=== PATIENT | female | born 1970 | race Caucasian/White ===

== ENCOUNTER → 2022-12-30 | Outpatient (CLI) | payer OTHER, SELFPAY ==
[2022-12-30 11:29] LABS: Erythrocyte Sedimentation Rate 2 mm/hr (0-30)
[2022-12-30 11:31] LABS: Absolute Lymphocyte Count 1.87 X10^3/uL (0.83-4.51); Absolute Neutrophil Count 5.2 X10^3/uL (2.0-7.7); Basophil# 0.02 X10^3/uL; Basophil% 0.3 % (0-1); Eosinophil# 0.02 X10^3/uL; Eosinophils% 0.3 % (0-5); Hematocrit 42.4 % (37-47); Hemoglobin 14.1 g/dL (12.0-15.0); Lymphocyte # 1.87 X10^3/ul (0.83-4.51); Lymphocyte % 24.7 % (19-41); Mean Corp Hgb Conc 33.3 g/dL (32-36); Mean Corpuscular Hgb 31.6 pg (27.0-32.0); Mean Corpuscular Volume 95.1 fL (81-99); Mean Platelet Vol. 10.3 fl (6.2-12.0); Monocyte# 0.49 X10^3/uL; Monocyte% 6.5 % (0-10); NRBC Flagged by Analyzer 0 % (0-5); Neutrophil # 5.15 X10^3/uL (2.7-7.7); Neutrophil % 68.1 % (47-70); Platelet Count 239 K/mm3 (150-450); RBC Distribution Width CV 12.2 % (11.6-14.6); RBC Distribution Width SD 42.7 fl (35.1-43.9); Red Blood Count 4.46 M/mm3 (4.2-5.4); White Blood Count 7.6 K/mm3 (4.4-11.0)
[2022-12-30 11:58] LABS: AST(SGOT) 15 U/L (15-37); Alanine Aminotransfer ALT/SGPT 17 U/L (13-56); Albumin, Serum 3.8 g/dL (3.2-5.0); Alkaline Phosphatase 80 U/L (45-117); Anion Gap 5 (5-15); BUN 16 mg/dL (7-18); CRP < 2.90 mg/L (0.0-3.0); Calcium,Total 8.5 mg/dL (8.5-10.1); Chloride 106 mmol/L (98-107); Creatinine, Serum 0.64 mg/dL (0.55-1.02); EST Glomerular Filtration Rate 103 mL/min (>60); Est Glom Filt Rate - Afr Amer 124 mL/min (>60); Globulin 3.7 g/dL (2.2-4.2); Glucose 91 mg/dL (74-106); Potassium 3.6 mmol/L (3.5-5.1); Protein, Total 7.5 g/dL (6.4-8.2); Sodium Level 141 mmol/L (136-145); Thyroid Stim Hormone (TSH) 1.11 uIU/mL (0.358-3.74)
[2022-12-31 13:07] LABS: Anti-Centromere B Ab <0.2 AI (0.0-0.9); Anti-Chromatin <0.2 AI (0.0-0.9); Anti-Jo <0.2 AI (0.0-0.9); Anti-Scleroderma-70 AB <0.2 AI (0.0-0.9); RNP Ab 0.3 AI (0.0-0.9); SJOGREN'S Anti-SS-A test < 0.2 AI (0.0-0.9); SJOGREN'S Anti-SS-B test < 0.2 AI (0.0-0.9); Smith Ab <0.2 AI (0.0-0.9)
[2022-12-31 18:07] LABS: Cytoplasmic Ab (C-ANCA) <1:20 titer (Neg:<1:20); Endomysial Antibody IgA Negative (Negative); Immunoglobulin A 201 mg/dL (87-352)
[2022-12-31 18:24] LABS: Perinuclear Ab (P-ANCA) <1:20 titer (Neg:<1:20); t-Transglutaminase IgA <2 U/mL (0-3)
[2023-01-01 19:59] LABS: Anti-dsDNA Ab 4 IU/mL (0-9)
== END | disposition home or self-care (01) ==
PROVIDERS: PCP Family Medicine; Referring Provider Nurse Practitioner Adult Health; Visit Provider Nurse Practitioner Adult Health
DX: R10.9 Unspecified abdominal pain (principal); K59.00 Constipation, unspecified
CPT/HCPCS: 36415; 80053; 82784; 83516; 84443; 85025; 85652; 86140; 86225; 86235; 86255; 86256

== ENCOUNTER 2023-01-08 09:30 | Day surgery (SDC) | payer OTHER, SELFPAY ==
[2023-01-08] VITALS (7 sets, daily range): BP systolic 98–114; BP diastolic 54–72; PULSE 68–82; RESP 18; TEMP 36.6–37.2; O2SAT 99–100; BMI 20.8
--- NOTE | 2023-01-08 09:36 | HP.PCM_ITS ---
History and Physical Date of Admission: 01/08/23 MARZENA TRUJILLO, is a 52 F who presents to the office today to establish with GI for abdominal pain, bloating. Symptoms began approx 5 months ago. She had constipation with small hard pebble stool, progressed to the point of impaction in August 2022. Treated with juices, stool softener but very uncomfortable for about 5 days. Bloating is most bothersome symptom at this time. Can only eat one meal a day, has early satiety since 08/2022, gets bloated and uncomfortable and nausea but no vomiting, no abd pain related to eating. Decreased appetite. Has lost about 5 lbs. Gets intermittent pain LUQ that wraps around to back. No heartburn or acid reflux, no dysphagia. Now stool is soft since having diarrhea last week. She has had diarrhea 3 times since August 2022, got bloating and cramping after eating, then diarrhea, urgent, had accident. Doesn't feel like bowels are completely emptying. No melena or hematochezia. She hates exercising but will make herself if necessary to treat her symptoms. 09/09/2022 KUB: negative 09/13/2022 CT abd pel w/ IV and oral contrast: moderate stool retention, possible uterine fibroid, right adnexal cyst No prior EGD or colonoscopyo 2018 negative Cologuard She doesn't take any OTC or Rx meds, prefers to avoid meds whenever possible PSH uterine ablation PMH depression, menstrual migraines ROS Const Constitutional: No fatigue ENT ENT: Positive for difficulty swallowing Gastro GI: Positive for abdominal pain, bloating, diarrhea, difficulty swallowing, excessive flatus and nausea/dyspepsia; No belching, change in bowel habits, change in stool character, coffee ground emesis, constipation, cramping, heartburn, feeling full early, incontinent of stools, Vomiting blood/hematemesis, Blood in stool, loose stools, Black,tarry stools, pain with swallowing, vomiting or other Musc Musculoskeletal: Positive for back pain and Arthritis; No joint pain Skin Skin: No yellowing of the eye or itchy eyes Psych Psychiatric: No anxiety and No depression Endo Endocrine: No fatigue Aller/Imm Allergy/Immunologic: No itchy eyes Vernon/Lymp Hematologic/Lymphatic: No easy bleeding or easy bruising Exam Const General: cooperative and healthy appearing Nutritional Appearance: average body habitus Orientation: alert, awake and oriented x3 HENMT Head: normal to inspection Eyes Sclera: sclerae normal Chest Chest palpation & inspection: normal inspection of the chest Resp Effort & Inspection: normal respiratory effort GI Inspection: normal to inspection Auscultation: normal bowel sounds Palpation: soft, no hepatosplenomegaly, no masses and tender in the epigastrum and in the LLQ General: bladder normal to palpation Bimanual Exam- Vagina & Uterus: bladder normal to palpation Skin General: no rashes or lesions noted Neuro Gait: normal gait Psych Mood: congruent mood Quality Reporting Tobacco Screening ([facility]) Smoking Status: Never smoker Assessment and Plan Assessment and Plan (1) Abdominal pain: ?Status:?Acute ?Plan: 52 yr old female with intermittent epigastric/LUQ pain, early satiety, bloating, constipation with intermittent diarrhea DDx includes gastroparesis, constipation with overflow diarrhea, SIBO EGD and colonoscopy w/ office f/u 2 wks later Labs today, will call her with results, then will recommend treatment to try to help with symptoms prior to endoscopies Consider gastric emptying study (2) Constipation: ?Status:?Chronic ?Plan: as above ? ? ? Orders: Orders Comprehensive Metabolic Profil Today K59.00 - Constipation, unspecified, R10.9 - Unspecified abdominal pain ? E CRP Today K59.00 - Constipation, unspecified, R10.9 - Unspecified abdominal pain ? Thyroid Stim Hormone (TSH) Today K59.00 - Constipation, unspecified, R10.9 - Unspecified abdominal pain ? CBC W/Diff, Automated Today K59.00 - Constipation, unspecified, R10.9 - Unspecified abdominal pain ? Erythrocyte Sed Rate Today K59.00 - Constipation, unspecified, R10.9 - Unspecified abdominal pain ? RUDOLPH Comprehensive Panel Today K59.00 - Constipation, unspecified, R10.9 - Unspecified abdominal pain ? ANCA Today K59.00 - Constipation, unspecified, R10.9 - Unspecified abdominal pain ? Celiac Disease Profile TodayI K59.00 - Constipation, unspecified, R10.9 - Unspecified abdominal pain ? I have examined the patient and the H&P has been reviewed. There are no clinical changes since date of exam.
[2023-01-08] MEDS: Lactated Ringers 1,000 ML 15 ML IV (10:04)
--- NOTE | 2023-01-08 10:09 | SUR.PREOP ---
patient unable to urinate at time of check-in. states that she is not and doesn't need the lab sample. patient refusing test. Spoke with Dr. Courtney, he is aware and states okay to proceed with procedure.
--- NOTE | 2023-01-08 10:30 | EGD_PTH ---
PATIENT: MARZENA TRUJILLO LOC: EN U#:[id number] AGE/SX: 52/F ROOM: RE01/08/[address]: Dr. Kenny Workman DO : 1970 BED: DIS: 01/08/2023 SPEC #: [id number] RECD: 01/08/23 12:18 STATUS: ADRI REHardik #: [id number] ASHVIN: 01/08/23 10:[address]: Kenny Workman DEPT: SURGICAL PATHOLOGY RECD BY: Melanie Joseph ENTERED: 01/08/23 13:19 SP TYPE: EGD BIOPSY OT DR: Dr. Daniel Bob MD Tissues: A - Duodenum, NOS B - Gastric mucous membrane C - Esophagus, NOS Procedures: Special Stain Group II Surgery Specimen Level IV Alcian Blue/PAS (control) HEADER OPERATION: [place] DIAGNOSIS: Screening TISSUE SUBMITTED: A ? Duodenum biopsy, B ? Gastric body biopsy, C ? Distal esophagus MICROSCOPIC DIAGNOSIS A. Duodenum, biopsy: Fragments of duodenal mucosa, no pathologic diagnosis. B. Gastric body, biopsy: Mild gastritis. See microscopic description and comment. C. Distal esophagus, biopsy: Fragments of gastroesophageal mucosa with chronic inflammation. Intestinal metaplasia (goblet cell metaplasia) not identified. See comment. SJ:leanne 01/09/2023 COMMENT B. The results of immunohistochemistry for Helicobacter pylori will be reported separately ([id number]). C. Alcian blue/PAS stain with matched control is used in the evaluation of the specimen. MICROSCOPIC DESCRIPTION Slides are reviewed. B. The specimen shows fragments of gastric mucosa with chronic inflammatory cell infiltrates in the lamina propria consisting of lymphocytes and plasma cells, consistent with mild chronic gastritis. A fragment of gastroesophageal mucosa is also noted in the specimen with mild chronic inflammation. Intestinal metaplasia (goblet cell metaplasia) is not seen. GROSS DESCRIPTION A - Received in fixative is one container labeled with the patient's name and designated duodenum biopsy. The specimen consists of multiple irregular fragments of light aguilar soft tissue that in aggregate measure 1.0 x 0.3 x 0.1 cm. The specimen is totally submitted in one cassette. B - Received in fixative is one container labeled with the patient's name and designated gastric body biopsy. The specimen consists of multiple irregular fragments of light aguilar soft tissue that in aggregate measure 1.0 x 0.3 x 0.1 cm. The specimen is totally submitted in one cassette. C - Received in fixative is one container labeled with the patient's name and designated distal esophagus biopsy. The specimen consists of two irregular fragments of light aguilar soft tissue that in aggregate measure 0.6 x 0.3 x 0.1 cm. The specimen is totally submitted in one cassette. / SJ:rg 01/08/2023 TC:3 CPT: 34550 x3, 54083
--- NOTE | 2023-01-08 10:30 | IMM_PTH ---
PATIENT: MARZENA TRUJILLO LOC: EN U#:[id number] AGE/SX: 52/F ROOM: RE01/08/[address]: Dr. Kenny Workman DO : 1970 BED: DIS: 01/08/2023 SPEC #: [id number] RECD: 01/08/23 13:38 STATUS: ADRI REQ #: [id number] ASHVIN: 01/08/23 10:[address]: Kenny Workman DEPT: IMMUNOHISTOCHEMISTRY RECD BY: Ольга Roach ENTERED: 01/08/23 13:38 SP TYPE: IMMUNO OTHR DR: Dr. Daniel Bob MD Tissues: B - Stomach, NOS Procedures: H Pylori (initial) PHYSICIAN & INSTITUTION [place] [id number] SPECIMEN INFORMATION: Tissue Source: B ? Gastric body Clinical Info: Screening Specimen Number: [id number] CPT code: 67412 METHODOLOGY: Deparaffinized sections of prefer/formalin-fixed tissue or PAP/DQ stained slides are incubated with monoclonal/polyclonal antibodies/oligonucleotide probes. Localization is made via biotin free immunoperoxidase method. Appropriate controls are performed and reacted as expected. Results on target cell population are indicated in the following table: RESULTS: ANTIBODY / CLONE RESULT Block B H Pylori (polyclonal) negative These tests were developed and their performance characteristics determined by [facility]. They may not have been cleared or approved by the U.S. Food and Drug Administration. The FDA has determined that such clearance or approval is not necessary. The above immunohistochemical/dualISH markers are ordered and reviewed by the Pathologist. INTERPRETATION: B. Gastric body, biopsy: Negative for Helicobacter pylori organisms. SJ:leanne 01/09/2023
--- NOTE | 2023-01-08 10:54 | OP.CCLET_ITS ---
01/08/2023 Daniel Bob Re : Upper GI endoscopy procedure for Carmen Bob This procedure was performed on Sunday, January 08, 2023. My impressions and recommendations are as follows: Impressions : - Normal esophagus. - Z-line irregular, 39 cm from the incisors. Biopsied. - Erythematous mucosa in the gastric body. Biopsied. - No gross lesions in the second portion of the duodenum. Biopsied. Recommendations : - Discharge patient to home. - Resume previous diet. - Continue present medications. - Await pathology results. My findings are described in the full procedure note, which is enclosed. If I can be of further assistance, please feel free to contact me at . Sincerely, Kenny Workman, 01/08/2023 10:53:37 AM This report has been signed electronically.
--- NOTE | 2023-01-08 10:54 | OP.EGD_ITS ---
Patient Name: Carmen Michael Procedure Date: 01/08/2023 10:18 AM Date of : 1970 Age: 52 Procedure: Upper GI endoscopy Indications: Epigastric abdominal pain Providers: Kenny Workman DO Medicines: Monitored Anesthesia Care Patient Profile: This is a 52 year old female. Refer to note in patient chart for documentation of history and physical. Patient has symptoms of chronic abdominal cramping, acute epigastric abdominal pain and chronic dyspepsia. Complications: No immediate complications. Procedure: Pre-Anesthesia Assessment: - Prior to the procedure, a History and Physical was performed, and patient medications and allergies were reviewed. The risks and benefits of the procedure and the sedation options and risks were discussed with the patient. All questions were answered and informed consent was obtained. Patient identification and proposed procedure were verified by the physician in the pre-procedure area. Mental Status Examination: alert and oriented. Respiratory Examination: clear to auscultation. CV Examination: normal. Prophylactic Antibiotics: The patient does not require prophylactic antibiotics. Prior Anticoagulants: The patient has taken no previous anticoagulant or antiplatelet agents. After reviewing the risks and benefits, the patient was deemed in satisfactory condition to undergo the procedure. The anesthesia plan was to use monitored anesthesia care (MAC). Immediately prior to administration of medications, the patient was re-assessed for adequacy to receive sedatives. The heart rate, respiratory rate, oxygen saturations, blood pressure, adequacy of pulmonary ventilation, and response to care were monitored throughout the procedure. The physical status of the patient was re-assessed after the procedure. After obtaining informed consent, the endoscope was passed under direct vision. Throughout the procedure, the patient's blood pressure, pulse, and oxygen saturations were monitored continuously. The Colonoscope was introduced through the mouth, and advanced to the second part of duodenum. The upper GI endoscopy was accomplished without difficulty. The patient tolerated the procedure well. Scope In: 10:24:51 AM Scope Out: 10:30:34 AM Total Procedure Duration Time 0 hours 5 minutes 43 seconds Findings: The examined esophagus was normal. The Z-line was irregular and was found 39 cm from the incisors. Biopsies were taken with a cold forceps for histology. Verification of patient identification for the specimen was done. Estimated blood loss was minimal. Patchy mildly erythematous mucosa without bleeding was found in the gastric body. Biopsies were taken with a cold forceps for histology. Verification of patient identification for the specimen was done. Estimated blood loss was minimal. No gross lesions were noted in the second portion of the duodenum. Biopsies were taken with a cold forceps for histology. Verification of patient identification for the specimen was done. Estimated blood loss was minimal. Impression: - Normal esophagus. - Z-line irregular, 39 cm from the incisors. Biopsied. - Erythematous mucosa in the gastric body. Biopsied. - No gross lesions in the second portion of the duodenum. Biopsied. Recommendation: - Discharge patient to home. - Resume previous diet. - Continue present medications. - Await pathology results. Procedure Code(s): --- Professional --- 24816, Esophagogastroduodenoscopy, flexible, transoral; with biopsy, single or multiple CPT copyright 2017 [employer]. All rights reserved. The codes documented in this report are preliminary and upon sociocultural anthropology professor review may be revised to meet current compliance requirements. Kenny Workman DO 01/08/2023 10:53:37 AM This report has been signed electronically. Number of Addenda: 0 Note Initiated On: 01/08/2023 10:18 AM
--- NOTE | 2023-01-08 10:58 | OP.CCLET_ITS ---
01/08/2023 Daniel Bob Re : Colonoscopy procedure for Carmen Bob This procedure was performed on Sunday, January 08, 2023. My impressions and recommendations are as follows: Impressions : - The entire examined colon is normal on direct and retroflexion views. - Diverticulosis in the recto-sigmoid colon and in the sigmoid colon. - The examined portion of the ileum was normal. - No specimens collected. Recommendations : - Discharge patient to home. - Resume previous diet. - Continue present medications. - Repeat colonoscopy in 10 years for screening purposes. My findings are described in the full procedure note, which is enclosed. If I can be of further assistance, please feel free to contact me at . Sincerely, Kenny Workman, 01/08/2023 10:57:04 AM This report has been signed electronically.
--- NOTE | 2023-01-08 10:58 | OP.COLON_ITS ---
Patient Name: Carmen Michael Procedure Date: 01/08/2023 10:30 AM Date of : 1970 Age: 52 Procedure: Colonoscopy Indications: Screening for colorectal malignant neoplasm Providers: Kenny Workman DO Medicines: Monitored Anesthesia Care Patient Profile: This is a 52 year old female. Refer to note in patient chart for documentation of history and physical. Patient has symptoms of chronic abdominal cramping, acute epigastric abdominal pain and chronic dyspepsia. Last Colonoscopy: none. The patient's first colonoscopy is today. Complications: No immediate complications. Procedure: Pre-Anesthesia Assessment: - Prior to the procedure, a History and Physical was performed, and patient medications and allergies were reviewed. The risks and benefits of the procedure and the sedation options and risks were discussed with the patient. All questions were answered and informed consent was obtained. Patient identification and proposed procedure were verified by the physician in the pre-procedure area. Mental Status Examination: alert and oriented. Respiratory Examination: clear to auscultation. CV Examination: normal. Prophylactic Antibiotics: The patient does not require prophylactic antibiotics. Prior Anticoagulants: The patient has taken no previous anticoagulant or antiplatelet agents. After reviewing the risks and benefits, the patient was deemed in satisfactory condition to undergo the procedure. The anesthesia plan was to use monitored anesthesia care (MAC). Immediately prior to administration of medications, the patient was re-assessed for adequacy to receive sedatives. The heart rate, respiratory rate, oxygen saturations, blood pressure, adequacy of pulmonary ventilation, and response to care were monitored throughout the procedure. The physical status of the patient was re-assessed after the procedure. After I obtained informed consent, the scope was passed under direct vision. Throughout the procedure, the patient's blood pressure, pulse, and oxygen saturations were monitored continuously. The Colonoscope was introduced through the anus and advanced to the terminal ileum. The colonoscopy was performed without difficulty. The patient tolerated the procedure well. The quality of the bowel preparation was good. Scope In: 10:34:48 AM Scope Withdrawal Time 0 hours 8 minutes 11 seconds Scope Out: 10:46:54 AM Total Procedure Duration Time 0 hours 12 minutes 6 seconds Findings: The perianal and digital rectal examinations were normal. The entire examined colon appeared normal on direct and retroflexion views. A few small-mouthed diverticula were found in the recto-sigmoid colon and sigmoid colon. The terminal ileum appeared normal. Impression: - The entire examined colon is normal on direct and retroflexion views. - Diverticulosis in the recto-sigmoid colon and in the sigmoid colon. - The examined portion of the ileum was normal. - No specimens collected. Recommendation: - Discharge patient to home. - Resume previous diet. - Continue present medications. - Repeat colonoscopy in 10 years for screening purposes. Procedure Code(s): --- Professional --- G0121, Colorectal cancer screening; colonoscopy on individual not meeting criteria for high risk CPT copyright 2017 [employer]. All rights reserved. The codes documented in this report are preliminary and upon mechanical maintenance technician review may be revised to meet current compliance requirements. Kenny Workman DO 01/08/2023 10:57:04 AM This report has been signed electronically. Number of Addenda: 0 Note Initiated On: 01/08/2023 10:30 AM
== END 2023-01-08 12:01 | disposition home or self-care (01) ==
LOC: EN 09:34 → AC 09:34
PROVIDERS: PCP Family Medicine; Referring Provider Family Medicine; Visit Provider Internal Medicine Gastroenterology
PROC: 0DJD8ZZ Inspection of Lower Intestinal Tract, Via Natural or Artificial Opening Endoscopic (ICD-10-PCS; CPT 45378; principal; 2023-01-08 10:25)
DX: Z12.11 Encounter for screening for malignant neoplasm of colon (principal); K57.30 Diverticulosis of large intestine without perforation or abscess without bleeding; K59.00 Constipation, unspecified; K29.70 Gastritis, unspecified, without bleeding
CPT/HCPCS: 45378; 43239; 88305; 88313; 88342; J7120